=== PATIENT | male | born 1945 | race Caucasian/White ===

== ENCOUNTER 2022-04-12 08:48 | Observation (INO) ==
--- NOTE | 2022-02-24 08:55 | PAT Medication Instructions ---
Medication Instructions Date of Service February 24, 2022 Home Medications cyanocobalamin (vitamin B-12) 50 mcg tablet (Vitamin B-12) 50 mcg PO QAM garlic 100 mg tablet 100 mg PO QAM multivitamin 1 tab PO QAM STOP taking 2 weeks before surgery (or as soon as possible if surgery is within 2 weeks) garlic 100 mg tablet 100 mg PO QAM DO NOT take the morning of surgery cyanocobalamin (vitamin B-12) 50 mcg tablet (Vitamin B-12) 50 mcg PO QAM multivitamin 1 tab PO QAM Other Notes If you have any questions please call us at [phone] or [phone] or [phone] or [phone]
--- NOTE | 2022-02-28 15:05 | Anesthesiology Consultation ---
Date of Service February 28, 2022 Assessment & Plan (1) Encounter for pre-operative examination: - COVID screening: Per assessment on 02/28: No known COVID-19 positive contacts or current COVID-19 related symptoms. Travel screen negative. Patient vaccinated. At surgeon discretion if preop Covid testing being done. - Outpatient joint assessment: Pt currently scheduled for inpatient pathway. If surgeon requests review for outpatient joint pathway, patient is acceptable candidate for outpatient joint program from anesthesia standpoint. - Patient acceptable risk for surgery pending surgeon-ordered PCP preop evaluation (Dr. Mirna Berman, scheduled 03/13). Chart Review Chart Review: Patient seen in Pre Admission Testing Teaching & Discussion Pre-Anesthesia Teaching/Discussion Notes: Instructed NPO after midnight before surgery,except medications with 15 cc of water. Medication instructions provided according to the PAT guidelines. History Surgery Operation Date: 04/12/22 10:30 Proposed Procedures p Left Knee Total Knee Arthroplasty - Jelani Nicole, Height/Weight Height: 5 ft 5 in Weight: 68.7 kg Allergies Allergy/AdvReac Type Severity Reaction Status Date / Time No Known Allergies Allergy Verified 02/23/22 14:11 Medications Home Medications Medication Instructions Recorded Confirmed Last Taken cyanocobalamin (vitamin B-12) 50 50 mcg PO QAM 02/23/22 02/23/22 Unknown mcg tablet (Vitamin B-12) garlic 100 mg tablet 100 mg PO QAM 02/23/22 02/23/22 Unknown multivitamin 1 tab PO QAM 02/23/22 02/23/22 Unknown Past Medical History Medical History GERD (gastroesophageal reflux disease) occasional Exercise / Class Metabolic Activity II 4-5 Yardwork/Stairs/Walk up hill (one FS (no CP, no SOB)) Past Family History Family History Other No family history of adverse response to anesthesia Past Surgical History Surgical History History of cholecystectomy Hx of cardiac catheterization 10 yrs ago > for chest pain, no stents/blockages found per pt Past Anesthesia History No Hx of Anesthesia Complications and No Family Hx of Anesthesia Complications History of PONV No Hx of PONV and No Hx of Motion Sickness Social History Smoking Status: Never smoker Do You Dip or Chew Tobacco: No Hx Alcohol Use: Yes (3 BEERS PER DAY) Alcohol type: beer alcohol intake frequency: 3 or more drinks per day (3 beers/day) Hx Substance Use: No substance use type: does not use Review of Systems Patient denies chest pain, shortness of breath, dyspnea on exertion, fever, chills, cough, wheezing, palpitations. Physical Exam Vital Signs VITALS BP 138/82 P 78 TEMP 98.8 SP02 95%RA RESP 18 PHYSICAL Full cervical extension range of motion. Full TMJ range of motion. TMD 3 finger breaths Mallampati Score 2 Dentition: full dentures upper/lower Lungs: clear throughout to auscultation Cardiac: regular rate and rhythm, no murmurs noted Spine: normal Carotid arteries: negative bruit Extremities: no edema Lab Results Anesthesia Preop Results Results Anesthesia Widget: WBC 4.97 K/ul (4.8-10.8) 02/28/22 Hgb 14.0 g/dl (14.0-18.0) 02/28/22 Hct 41.5 % (40.1-51.0) 02/28/22 Plt 205 K/uL (130-400) 02/28/22 Na 141 mmol/L (136-145) 02/28/22 K 4.1 mmol/L (3.5-5.1) 02/28/22 Cl 105 mmol/L (98-107) 02/28/22 CO2 27 mmol/L (21-32) 02/28/22 BUN 18 mg/dl (6-23) 02/28/22 Creat 0.99 mg/dl (0.6-1.4) 02/28/22 Glucose Level 81 mg/dl (70-99(Fasting)) 02/28/22 PT 10.8 Seconds (9.0-12.0) 02/28/22 PTT 28.8 Seconds (21.0-31.0) 02/28/22 INR 1.0 (0.9-1.1) 02/28/22 HA1c 5.5 % (4.5-5.6) 02/28/22 Urine Color Dark Yellow 02/28/22 Urine Appearance Clear (Clear) 02/28/22 Urine pH 5.5 (4.5-7.5) 02/28/22 Urine Specific [place] 1.025 (1.000-1.030) 02/28/22 Urine Protein Trace (Negative) H 02/28/22 Urine Glucose (UA) Negative (Negative) 02/28/22 Urine Ketones 2+ (Negative) H 02/28/22 Urine Blood Negative (Negative) 02/28/22 Urine Nitrite Negative (Negative) 02/28/22 Urine Bilirubin 1+ (Negative) H 02/28/22 Urine Urobilinogen Negative (Negative) 02/28/22 Urine Leukocyte Esterase Negative (Negative) 02/28/22 Urine WBC (Auto) 1-5 /hpf (0-5) 02/28/22 Urine RBC (Auto) 0-4 /hpf (0-4) 02/28/22 Urine Hyaline Casts (Auto) 1-5 /lpf (0-5) 02/28/22 Urine Epithelial Cells (Auto) 10-20 /lpf (0-5) H 02/28/22 Urine Bacteria (Auto) Negative (Negative) 02/28/22 Blood Type O Negative 02/28/22 Antibody Screen NEGATIVE 02/28/22 Testing Electrocardiogram Date: 02/28/22 NSR at 77bpm. Low voltage QRS. RBBB. Cannot r/o inferior infarct, age undetermined. Chest X-Ray Date: 02/28/22 FINDINGS: Cardiomediastinal and hilar silhouettes are within normal limits. No pneumothorax, pleural effusion, airspace consolidation or overt pulmonary edema. Degenerative changes of the shoulders and spine. IMPRESSION: No acute process. COVID-19 Risk Screen Screening Information COVID-19 Screen Date: 02/28/22 Exposure 21 Days Family/Household +COVID Last 21 Days: No Exposure 10 Days Any COVID Exposure Last 10 Days: No Symptoms Last 10 Days Experienced COVID Sx Last 10 Days: No + COVID 0-90 Days COVID + in Last 0-90 Days: No
--- NOTE | 2022-03-17 15:00 | History & Physical Report ---
Date of Service March 17, 2022 date of surgery: 04/12/22 Procedure: Left Knee Total Knee Arthroplasty Surgeon: Jelani Nicole Assessment & Plan (1) Arthritis of knee, left: Plan: Presents for evaluation of chronic left knee pain for over 50 years. X-rays taken today show advanced generative changes to his left knee. He states he has tried and failed previous cortisone injection as well as viscosupplementation without any relief. He tries acetaminophen as well as Aleve with mild relief. Discussed treatment options with patient today he would like to proceed with left total knee replacement. We will schedule for patient matched left total knee replacement [facility] with overnight hospital stay. We will plan on discharge with home health physical therapy, aspirin 81 mg twice a day for 1 month postop we will schedule for Iovera injection 2 weeks prior to surgery patient otherwise has no other questions or concerns the risks and benefits have been discussed including, but not limited to, risk of infection, nerve injury, stiffness, loss of motion, failure to improve, etc. Reasonable outcomes and options of treatment were discussed. An explanation of appropriate alternatives to the procedure that may be advantageous were discussed and their risks and benefits, as well as the risks and benefits of not proceeding with treatment. I offered to answer any additional inquiries concerning the treatment involved. All the patient's questions were answered. The patient is agreeable, understanding of the treatment plan and alternatives, and wishes to proceed with the treatment plan. History of Present Illness Chief Complaint: left knee pain Primary Care Provider: NO PCP Presents for preop evaluation prior to his left total knee replacement. He states he been having pain in this knee for many years now which is gradually worsened, he states for about 50 years. He has tried and failed previous cortisone injection as well as viscosupplementation without relief. He is tried oral anti-inflammatories and Tylenol as well. His pain is now affecting his daily activities including walking standing going up and on. At this point time would like to proceed with left total knee replacement Allergies Allergy/AdvReac Type Severity Reaction Status Date / Time No Known Allergies Allergy Verified 02/23/22 14:11 Home Medications Medication Instructions Recorded Confirmed Type cyanocobalamin (vitamin B-12) 50 50 mcg PO QAM 02/23/22 02/23/22 History mcg tablet (Vitamin B-12) garlic 100 mg tablet 100 mg PO QAM 02/23/22 02/23/22 History multivitamin 1 tab PO QAM 02/23/22 02/23/22 History Past Med/Surg History Medical History GERD (gastroesophageal reflux disease) occasional Surgical History History of cholecystectomy Hx of cardiac catheterization 10 yrs ago > for chest pain, no stents/blockages found per pt Family History Other No family history of adverse response to anesthesia Social History Smoking Status: Never smoker Second Hand Exposure: No; Hx Alcohol Use: Yes (3 BEERS PER DAY) Alcohol type: beer Hx Substance Use: No Preferred Language: Setswana Communication Ability: Effective Rake Operator Required: No Beliefs That Will Affect Care: None Current Living Situation: Spouse Feels Safe at Home: Yes Assistive Devices: None, Denture - Upper, Denture - Lower and Glasses Review of Systems Review of Systems: All systems reviewed & are unremarkable except as noted in HPI & below Constitutional: no fever, no chills and no sweats Respiratory: no cough and no dyspnea Cardiovascular: no chest pain, no dyspnea and no orthopnea Gastrointestinal: no abdominal pain, no nausea and no vomiting Musculoskeletal: as per Subjective / HPI Physical Exam Physical Exam: HT: 5ft 5in WT: 68.7kg Constitutional: WD/WN, vitals as above no acute distress Respiratory: normal respiratory effort, lungs clear to auscultation no respiratory distress, no labored breathing and does not use accessory muscles Cardiovascular: RRR, no murmur, no edema Gastrointestinal (Abdomen): normal bowel sounds, soft, nontender, no hepatosplenomegaly Musculoskeletal: Knee: + knee abnormal to inspection (LEFT KNEE), + effusion (+1 effusion), + limited ROM of knee (ROM 0/3/110), + knee ROM with crepitation, + joint line tenderness (medial joint line) and + Ananda's sign positive; no deformity, no skin erythema, no ecchymosis, no valgus laxity, no varus laxity, anterior drawer test negative, Jacky's sign negative and pivot shift test negative Results & Data Results & Data ([facility]) Diagnostic Findings Left Knee X-ray: left knee series confirm advanced degenerative changes to the left knee, greatest medial compartments and patellofemoral joint, showing joint space narrowing, osteophyte formation and subchondral sclerosis. no acute bony pathology noted.
[~2022-04-12 08:48] MED LIST: ACETAMINOPHEN 500 MG TAB PO SCH; BUPIVACAINE 0.5 % 5 MG/1 ML PF 10ML VIAL ONE; CeleBREX 200 MG CAP PO SCH; FAMOTIDINE 20 MG TAB PO SCH; GABAPENTIN 300 MG CAP PO SCH; LR 500ML BOLUS, THEN 15ML/HR IV SCH; METOCLOPRAMIDE HCL 10 MG TABLET PO SCH; ROPIVACAINE 0.5% 5 MG/ML 30 ML VIAL ONE; ROPIVACAINE 0.5% HCL/PF 150 MG, BUPIVACAINE 0.75% MPF 20 ML, EPINEPHrine 30MG/30ML (OR ... INSTIL SCH; TRANEXAMIC ACID 1,000 MG **IV Intra-op IV SCH; TRANEXAMIC ACID 1,000 MG **IV Pre-op IV SCH; ceFAZolin 2000MG 2,000 MG/15 ML SYR IV SCH; dexAMETHasone 4 MG TAB PO SCH
--- NOTE | 2022-04-12 09:48 | History & Physical Bridge Note ---
Date of Service April 12, 2022 History & Physical Bridge Note I have examined the patient, reviewed the History & Physical and in the interval since the performance of the History & Physical I have noted the following changes of clinical significance: no changes noted
[2022-04-12] MEDS ORDERED: MIDAZOLAM HCL 1 MG/ML 2ML VIAL ONE (10:53)
[2022-04-12] MEDS ORDERED: DEXAMETHASONE SOD INJ 4 MG/ML VIAL ONE ×2 (10:53→12:54)
[2022-04-12] MEDS ORDERED: PROPOFOL IV EMULSION 10 MG/ML 20 ML VIAL IV ONE ×2 (10:53→13:34)
[2022-04-12] MEDS ORDERED: ONDANSETRON INJ 2 MG/ML 2 ML VIAL ONE (10:53)
[2022-04-12] MEDS ORDERED: HYDROmorphone INJ 2 MG/ML SYR/VIAL IV PRN (11:48)
[2022-04-12] MEDS ORDERED: fentaNYL citrate 100 MCG/2 ML VIAL IV PRN (11:48)
[2022-04-12] MEDS ORDERED: PROMETHAZINE HCL 12.5 MG in SODIUM CHLORIDE 0.9% 50 ML IV PRN (11:48)
[2022-04-12] MEDS ORDERED: ONDANSETRON INJ 2 MG/ML 2 ML VIAL IV PRN ×2 (11:48→16:15)
[2022-04-12] MEDS ORDERED: ePHEDrine sulfate 50 MG/ML AMP IV PRN (11:48)
[2022-04-12] MEDS ORDERED: ATROPINE SULFATE 0.1 MG/ML 10ML SYR IV PRN (11:48)
[2022-04-12] MEDS ORDERED: ePHEDrine sulfate 50 MG/ML SYR ONE (12:22)
[2022-04-12] MEDS ORDERED: ORTHO JOINT ANESTHETIC ONE (12:23)
[2022-04-12] MEDS ORDERED: fentaNYL citrate 100 MCG/2 ML VIAL ONE (12:54)
[2022-04-12] MEDS ORDERED: ESMOLOL HCL INJ 10 MG/ML 10ML VIAL IV ONE (13:31)
--- NOTE | 2022-04-12 13:37 | Operative Report ---
Post Operative Report Pre & Post Diagnosis Operation Date: 04/12/22 11:40 Pre-Op Diagnosis: Arthritis of Left Knee Post-Op Diagnosis: Arthritis of Left Knee I identified the patient and participated in the time-out.: Yes Procedure Operation Date: 04/12/22 11:40 Actual Procedures p Left Knee Total Knee Arthroplasty(Left) utilizing [facility] 2 patient matched total knee arthroplasty size femur 4 tibia for polytwelve patella 32 papo- Jelani Nicole DO Surgeon Jelani Nicole DO Merchandiser Retail Representative CHRISTIANA Estrada Estimated Blood Loss 5 Findings Consistent with Post-Op Diagnosis Patient resting severe end-stage tricompartmental DJD left knee no response to conservative management the above intraoperative findings noted patient had about eburnated [id number] subchondral sclerosis marginal osteophytes moderate to large effusion Specimens Bone Drains Medium bore Anesthesia Type MAC Spinal Regional Complications none Disposition Accompanied Patient To Recovery: No Disposition: Recovery Room Indications Patient presents with severe end-stage DJD left knee for left total knee arthroplasty patient fell attempted corticosteroid injection viscosupplementation relative rest activity modification presents with the above intraoperative findings noted Description of Procedure After proper prepping and draping of the left lower extremity anterior midline incision was made over the region of the extensor extensor mechanism after meticulous hemostasis was obtained and maintained in subcutaneous tissues a medial parapatellar incision was made The patella was subluxed lateralward the medial lateral gutter were cleaned from any hypertrophic synovitis and scar tissue of the distal femoral block was placed and the distal femoral osteotomy cut was made subsequently the chamfers anterior and posterior osteotomy cuts were made utilizing the 4-in-1 block the tibia was subsequently subluxed anteriorward medial and ateral meniscal remnants were excised in their entirety remnants of the anterior and posterior cruciate ligaments were excised in their entirety excellent exposure of the proximal tibia was obtained the tibial osteotomy guide was placed on the proximal tibial osteotomy cut was made once again the knee was irrigated with copious amounts of sterile saline solution the patella was subsequently everted lateralward thickened scar tissue around the patella was removed the patella was subsequently cut utilizing a freehand technique and was drilled prepared for final preparation and placement of patella socially flexion-extension gaps were checked and the equal and symmetric trials were placed to the appropriate femoral and tibial trials with poly-spacer being placed for equal flexion and extension gaps and full range of motion including extension to 0 and flexion to 140 the trial components after having been taken to recovery range of motion was subsequently removed meticulous hemostasis was obtained and maintained subsequently a knee block injection of joint cocktail including ropivacaine 0.5% 150 mg. Bupivacaine 0.5% epinephrine 1-200,030 mL's toradol 30 mg dexamethasone 4 mg ketamine 10 mg clonidine 100 micrograms normal saline solution 30 mg was infiltrated into the soft tissues of the posterior knee medial lateral gutters and periosteal synovium special attention was paid to protect neurovascular structures at all times subsequently trial components having been removed the knee was irrigated with sterile saline solution. debris was removed the proximal tibia was subsequently prepared and was made ready for the placement of the tibial component tibial component was also cemented and tamped into position the femoral component was subsequently placed and cemented in the position the patellar component was subsequently cemented in position because hemostasis once again obtained and maintained wound having been thoroughly irrigated with debridement and debridement lavage was performed as well as a medial parapatellar incision closed with #1 Vicryl in interrupted fashion subcutaneous was closed with #2 Vicryl skin was closed with skin clips. PA-C was necessary for prepping and drapping as well as wound closure of deep fascia Sub cutaneous tissue and skin and was necessary for the case. A sterile compressive dressing was placed patient was taken to recovery in stable condition of report dictated by Corey I attest to the content of the Intraoperative Record and any orders documented therein. Any exceptions are noted below.Due to the complex nature of the procedure, the entire surgery was performed with the operational assistance of CHRISTIANA Estrada. The assistant county engineer, under direct supervision, was involved in the actual performance of all aspects of the surgical procedure including hemostasis, tissue retraction and incision, instrument management, patient positioning, and wound closure. I attest to the content of the Intraoperative Record and any orders documented therein. Any exceptions are noted below.
--- NOTE | 2022-04-12 14:53 | Anesthesiology Progress Note ---
Date of Service April 12, 2022 Anesthesia Post Procedure Vital Signs Vital Signs: Temp Pulse Pulse Resp BP BP Pulse Ox 04/12/22 14:50 98 H 19 99/54 L 95 04/12/22 14:40 90 18 105/52 L 97 04/12/22 14:25 97 H 20 113/51 L 99 04/12/22 14:15 36.1 C L 98 H 14 101/53 L 97 04/12/22 09:27 36.8 C 71 20 162/82 H 98 O2 Del Method O2 Flow Rate 04/12/22 14:50 Room Air 04/12/22 14:40 Oxymask 4 04/12/22 14:25 Oxymask 6 04/12/22 14:15 Oxymask 6 04/12/22 09:27 Room Air Pain Intensity Left Knee: Pain Intensity: 5 Transfer of Care Handoff Completed per policy Notes Mental Status: alert / awake / arousable and participated in evaluation Nausea / Vomiting: adequately controlled Pain: adequately controlled Airway Patency, RR, SpO2: stable & adequate BP & HR: stable & adequate Hydration State: stable & adequate Neuraxial Anesthesia: was administered and sensory block is resolving Anesthetic Complications: no major complications apparent and Pt Satisfied with anesthetic care
--- NOTE | 2022-04-12 15:41 | XRay Report ---
LEFT KNEE 2 VIEWS History: Left total knee arthroplasty. Degenerative arthritis. Postop. FINDINGS: The patient is status post a left total knee arthroplasty. The hardware is intact. No fract ure or dislocation. Surgical drains are in place. IMPRESSION: Left total knee arthroplasty. No evidence for hardware complication. ACT 112: Negative or not required by law. Electronically signed by: Skip Amos M.D. 04/12/2022 3:40 PM
[2022-04-12] MEDS ORDERED: NALOXONE HCL 0.4 MG/1 ML VIAL/CARP IV PRN (16:15)
[2022-04-12] MEDS ORDERED: oxyCODONE HCL IR 5 MG TAB (IMMEDIATE RELEASE) PO PRN (16:15)
[2022-04-12] MEDS ORDERED: MAGNESIUM HYDROXIDE SUSP 30 ML UDC PO PRN (16:15)
[2022-04-12] MEDS ORDERED: bisacodyL 10 MG SUPP PR PRN (16:15)
[2022-04-12] MEDS ORDERED: METOCLOPRAMIDE HCL INJ 5 MG/ML 2 ML VIAL IV PRN (16:15)
[2022-04-12] MEDS ORDERED: HYDROmorphone INJ 1 MG/ML SYRINGE IV PRN (16:15)
[2022-04-12] MEDS ORDERED: diphenhydrAMINE Capsule 25 MG CAP PO PRN (16:15)
--- NOTE | 2022-04-12 16:50 | Hospitalist Consultation ---
Date of Consultation April 12, 2022 Assessment & Plan (1) Arthritis of knee, left: Huber is a 77-year-old male with past medical history of right bundle branch block who presented for scheduled left knee total arthroplasty. He is doing well postoperatively with no acute concerns. Normal sensation, neurovascularly intact in both lower extremities. S/p left TKA Neurovascularly intact, drain in place DVT prophylaxis, ambulation, pain control per primary team Do well postoperatively with no acute concerns Right bundle branch block Noted on cardiology preoperative evaluation. Subsequent echo without concerning findings. No angina or anginal equivalents Follow clinically, no acute intervention required at this time if patient continuing to do well Is not on any chronic medications No signs of ACS, CHF Denies pulmonary disease, breathing is unlabored and comfortable on room air No history of renal disease No history of diabetes Is doing well, hemodynamically stable, neurovascularly intact postoperatively. Medicine will sign off, please let us know if any clinical concerns or other abnormalities develop (2) RBBB: History of Present Illness Attending Physician: Jelani Nicole, History of Present Illness Huber is a 77-year-old male who presented for scheduled left knee total arthroplasty, we have been scheduled for postoperative medical management. Patient had a history of preoperative right bundle branch block without chest pain/chest pressure/syncope/angina, underwent a preoperative echocardiogram which showed normal LV thickness, EF 60-64%, grade 1 diastolic dysfunction.No concerning symptoms, was recommended to proceed with surgery. Patient is seen at the bedside, reports he feels well, has sensation that is returned to his feet bilaterally and is eager to begin moving around and be more active. Denies chest pain, chest pressure, lightheadedness, dizziness, nausea, vomiting, pain at time of bedside assessment. Patient reports he takes no regular medications at home, has no pulmonary or renal disease, no history of heart attacks. Former tobacco use, none recently. Drinks beers 13, no history of withdrawal/tremors, has had alcohol free days in the past month with no tremor/shakes. Medical History: Reviewed Medications: Reviewed Surgical History: Reviewed Allergies: Reviewed Social History: Reviewed, former tobacco use in remission Code Status: Full Allergies Allergy/AdvReac Type Severity Reaction Status Date / Time No Known Allergies Allergy Verified 04/12/22 09:25 Home Medications Medication Instructions Recorded Confirmed Type cyanocobalamin (vitamin B-12) 50 50 mcg PO QAM 02/23/22 04/12/22 History mcg tablet (Vitamin B-12) garlic 100 mg tablet 100 mg PO QAM 02/23/22 04/12/22 History multivitamin 1 tab PO QAM 02/23/22 04/12/22 History Patient History Medical History GERD (gastroesophageal reflux disease) occasional Surgical History History of cholecystectomy Hx of cardiac catheterization 10 yrs ago > for chest pain, no stents/blockages found per pt Family History Other No family history of adverse response to anesthesia Social History Smoking Status: Never smoker Second Hand Exposure: No; Do You Dip or Chew Tobacco: No; Tobacco Cessation Education Requested by Patient: No Hx Alcohol Use: Yes (3 BEERS PER DAY) Alcohol type: beer Hx Substance Use: No Preferred Language: Moldovan Communication Ability: Effective Tie Sawyer Required: No Beliefs That Will Affect Care: None Current Living Situation: Spouse Other Information That Helps Us Care for You: No Feels Safe at Home: Yes Safety Concerns: Feels Safe At This Time Assistive Devices: None, Denture - Upper, Denture - Lower and Glasses Review of Systems Review of Systems: All systems reviewed & are unremarkable except as noted in HPI & below Physical Exam Physical Exam: General: A&Ox3. NAD. Cooperative. HEENT: Atraumatic, normocephalic. Vision/hearing intact Pulm: CTAB A&P. -wheezes, -rales, -rhonchi. Symmetrical chest rise. No increase in work of breathing. No respiratory distress. Cardiac: RRR, -mrg. Radial pulses intact and symmetrical. Abdominal: Nontender, nondistended, soft. BS present. Extremity: Left leg with postoperative knee dressing in place. Sensation to soft touch intact in feet bilaterally without asymmetry. Ankle dorsiflexion/plantarflexion intact bilaterally, wiggles toes bilaterally. PT pulse intact bilaterally. Left knee with drain in place, draining sanguinous material Results & Data Results & Data ([facility]) Vital Signs (Past 12 Hours) Vital Signs Temp Pulse Pulse Resp BP BP Pulse Ox 04/12/22 16:15 36.6 C 91 H 16 113/61 94 04/12/22 15:45 90 16 110/56 L 93 04/12/22 15:30 94 H 20 120/58 L 93 04/12/22 15:15 93 H 16 112/51 L 92 04/12/22 15:00 36.4 C L 94 H 20 115/65 94 04/12/22 14:50 98 H 19 99/54 L 95 04/12/22 14:40 90 18 105/52 L 97 04/12/22 14:25 97 H 20 113/51 L 99 04/12/22 14:15 36.1 C L 98 H 14 101/53 L 97 04/12/22 09:27 36.8 C 71 20 162/82 H 98 O2 Del Method O2 Flow Rate 04/12/22 16:15 Room Air 04/12/22 15:45 Room Air 04/12/22 15:30 Room Air 04/12/22 15:15 Room Air 04/12/22 15:00 Room Air 04/12/22 14:50 Room Air 04/12/22 14:40 Oxymask 4 04/12/22 14:25 Oxymask 6 04/12/22 14:15 Oxymask 6 04/12/22 09:27 Room Air PG Care Time/CCT Total # of Minutes Spent Total Time Spent with Patient: Total time spent is greater than 50% in coordination of care (as documented) at patient's floor/unit and/or counseling patient: Coding Level of Care Code 91963 Inpt Consult Level 2 Diagnoses Arthritis of knee, left M17.12 RBBB I45.10
[2022-04-12] MEDS: SODIUM CHLORIDE 0.9% 1000ML 1,000 ML IV SCH (17:41)
[2022-04-12] MEDS: KETOROLAC TROMETHAMINE 15 MG/ML VIAL IV SCH ×2 (17:41→23:06)
[2022-04-12] MEDS: ceFAZolin 2000MG 2,000 MG/15 ML SYR IV SCH (20:00)
[2022-04-12] MEDS: DOCUSATE SODIUM 100 MG CAP PO SCH (20:00)
[2022-04-12] MEDS: ASPIRIN 81 MG ECTAB PO SCH (20:00)
[2022-04-12] MEDS ORDERED: CeleBREX 200 MG CAP PO SCH (21:00)
[2022-04-12] MEDS ORDERED: SENNA 8.6 MG TAB PO SCH (21:00)
[2022-04-12] MEDS: ACETAMINOPHEN 500 MG TAB PO SCH (21:26)
[2022-04-13] MEDS: ceFAZolin 2000MG 2,000 MG/15 ML SYR IV SCH (04:19)
[2022-04-13] MEDS: SODIUM CHLORIDE 0.9% 1000ML 1,000 ML IV SCH (04:43)
[2022-04-13] MEDS: KETOROLAC TROMETHAMINE 15 MG/ML VIAL IV SCH ×2 (05:40→11:16)
[2022-04-13] MEDS: ACETAMINOPHEN 500 MG TAB PO SCH (05:40)
--- NOTE | 2022-04-13 07:14 | Orthopedic Progress Note ---
Date of Service April 13, 2022 Assessment & Plan (1) History of total left knee replacement: Plan: POD #1 s/p left TKA pt/ot dvt proph with PORTILLO/SCD/ASA plan for d/c home with HHPT Admission and Anticipated Discharge Date Admission Date: April 12, 2022 Subjective POD #1 s/p Left TKA Review of Systems Constitutional: no fever, no chills and no sweats Respiratory: no cough and no dyspnea Cardiovascular: no chest pain and no dyspnea Gastrointestinal: no abdominal pain, no nausea and no vomiting Physical Exam Physical Exam: Vital Signs Temp Pulse Pulse Resp BP BP Pulse Ox 04/13/22 05:44 36.5 C 80 18 135/78 94 04/13/22 02:35 36.4 C L 88 18 110/63 94 04/12/22 19:45 04/12/22 21:59 94 04/12/22 21:48 36.8 C 101 H 18 96/53 L 90 04/12/22 19:23 36.7 C 103 H 18 110/55 L 95 04/12/22 16:20 04/12/22 17:23 36.4 C L 92 H 17 131/73 95 04/12/22 16:15 36.6 C 91 H 16 113/61 94 04/12/22 15:45 90 16 110/56 L 93 04/12/22 15:30 94 H 20 120/58 L 93 04/12/22 15:15 93 H 16 112/51 L 92 04/12/22 15:00 36.4 C L 94 H 20 115/65 94 04/12/22 14:50 98 H 19 99/54 L 95 04/12/22 14:40 90 18 105/52 L 97 04/12/22 14:25 97 H 20 113/51 L 99 04/12/22 14:15 36.1 C L 98 H 14 101/53 L 97 04/12/22 09:27 36.8 C 71 20 162/82 H 98 O2 Del Method O2 Flow Rate 04/13/22 05:44 Room Air 04/13/22 02:35 Room Air 04/12/22 19:45 Room Air 04/12/22 21:59 04/12/22 21:48 Room Air 04/12/22 19:23 Room Air 04/12/22 16:20 Room Air 04/12/22 17:23 Room Air 04/12/22 16:15 Room Air 04/12/22 15:45 Room Air 04/12/22 15:30 Room Air 04/12/22 15:15 Room Air 04/12/22 15:00 Room Air 04/12/22 14:50 Room Air 04/12/22 14:40 Oxymask 4 04/12/22 14:25 Oxymask 6 04/12/22 14:15 Oxymask 6 04/12/22 09:27 Room Air Intake and Output 04/12/22 04/13/22 04/13/22 22:59 06:59 14:59 Intake Total 350 / 3110 1260 / 3110 Output Total 400 / 1355 950 / 1355 Balance -50 / 1755 310 / 1755 Intake: IV 200 / 1200 1000 / 1200 Sodium Chlorid e 0.9% 1000ML 1, 1000 / 1000 000 ml @ 100 m ls/hr IV .Q10H [facility] Rx#:[id number] Tranexamic Aci d / 0.7% NaCl 1, 200 / 200 000 mg In 100 ml @ 600 mls/hr IV TODAY@0600 [facility] Rx#:[id number] Oral 150 / 410 260 / 410 Output: Urine 350 / 1275 925 / 1275 Drain Output 50 / 75 25 / 75 Left Knee Hemo vac 50 / 75 25 / 75 Musculoskeletal: Left Leg: NVDI, calf SNT, negative leeroy sign. DP palpable, able to wiggle toes/ankle movement without difficulty. dressing clean dry and intact. Results & Data ([facility]) Vital Signs (Past 12 Hours) Vital Signs Temp Pulse Pulse Resp BP Pulse Ox O2 Del Method 04/13/22 05:44 36.5 C 80 18 135/78 94 Room Air 04/13/22 02:35 36.4 C L 88 18 110/63 94 Room Air 04/12/22 19:45 Room Air 04/12/22 21:59 94 04/12/22 21:48 36.8 C 101 H 18 96/53 L 90 Room Air 04/12/22 19:23 36.7 C 103 H 18 110/55 L 95 Room Air Laboratory Results Laboratory Results SARS-CoV-2, RNA, NAAT NEGATIVE (NEGATIVE) 04/12/22 Unknown Impressions Knee X-Ray 04/12/22 14:17 LEFT KNEE 2 VIEWS History: Left total knee arthroplasty. Degenerative arthritis. Postop. FINDINGS: The patient is status post a left total knee arthroplasty. The hardware is intact. No fracture or dislocation. Surgical drains are in place. IMPRESSION: Left total knee arthroplasty. No evidence for hardware complication. ACT 112: Negative or not required by law. Electronically signed by: Skip Amos M.D. 04/12/2022 3:40 PM
--- NOTE | 2022-04-13 07:19 | Discharge Summary ---
Date of Service date of discharge: April 13, 2022 date of admission: 04-12-22 Admission HPI Per Admitting Provider Presents for preop evaluation prior to his left total knee replacement. He states he been having pain in this knee for many years now which is gradually worsened, he states for about 50 years. He has tried and failed previous cortisone injection as well as viscosupplementation without relief. He is tried oral anti-inflammatories and Tylenol as well. His pain is now affecting his daily activities including walking standing going up and on. At this point time would like to proceed with left total knee replacement Principal Diagnosis left knee arthritis Discharge Exam Vital Signs Temp Pulse Pulse Resp BP BP Pulse Ox 04/13/22 05:44 36.5 C 80 18 135/78 94 04/13/22 02:35 36.4 C L 88 18 110/63 94 04/12/22 19:45 04/12/22 21:59 94 04/12/22 21:48 36.8 C 101 H 18 96/53 L 90 04/12/22 19:23 36.7 C 103 H 18 110/55 L 95 04/12/22 16:20 04/12/22 17:23 36.4 C L 92 H 17 131/73 95 04/12/22 16:15 36.6 C 91 H 16 113/61 94 04/12/22 15:45 90 16 110/56 L 93 04/12/22 15:30 94 H 20 120/58 L 93 04/12/22 15:15 93 H 16 112/51 L 92 04/12/22 15:00 36.4 C L 94 H 20 115/65 94 04/12/22 14:50 98 H 19 99/54 L 95 04/12/22 14:40 90 18 105/52 L 97 04/12/22 14:25 97 H 20 113/51 L 99 04/12/22 14:15 36.1 C L 98 H 14 101/53 L 97 04/12/22 09:27 36.8 C 71 20 162/82 H 98 O2 Del Method O2 Flow Rate 04/13/22 05:44 Room Air 04/13/22 02:35 Room Air 04/12/22 19:45 Room Air 04/12/22 21:59 04/12/22 21:48 Room Air 04/12/22 19:23 Room Air 04/12/22 16:20 Room Air 04/12/22 17:23 Room Air 04/12/22 16:15 Room Air 04/12/22 15:45 Room Air 04/12/22 15:30 Room Air 04/12/22 15:15 Room Air 04/12/22 15:00 Room Air 04/12/22 14:50 Room Air 04/12/22 14:40 Oxymask 4 04/12/22 14:25 Oxymask 6 04/12/22 14:15 Oxymask 6 04/12/22 09:27 Room Air Intake and Output 04/12/22 04/13/22 04/13/22 22:59 06:59 14:59 Intake Total 350 / 3110 1260 / 3110 Output Total 400 / 1355 950 / 1355 Balance -50 / 1755 310 / 1755 Intake: IV 200 / 1200 1000 / 1200 Sodium Chloride 0.9% 1000ML 1, 1000 / 1000 000 ml @ 100 mls/hr IV .Q10H [facility] Rx#:[id number] Tranexamic Acid / 0.7% NaCl 1, 200 / 200 000 mg In 100 ml @ 600 mls/hr IV TODAY@0600 [facility] Rx#:[id number] Oral 150 / 410 260 / 410 Output: Urine 350 / 1275 925 / 1275 Drain Output 50 / 75 25 / 75 Left Knee Hemovac 50 / 75 25 / 75 Musculoskeletal left knee: NVDI, calf SNT, negative leeroy sign. DP palpable, able to wiggle toes/ankle movement without difficulty. Discharge Data Allergies Allergy/AdvReac Type Severity Reaction Status Date / Time No Known Allergies Allergy Verified 04/12/22 09:25 Consultations 04/07/22 15:01 Consult Hospitalist Routine Procedures Performed Operation Date: 04/12/22 11:40 Actual Procedures p Left Knee Total Knee Arthroplasty(Left) - Jelani Rice DO Ordered Studies 04/12/22 05:00 US - OR guided needle placemen Routine Hospital Course (1) History of total left knee replacement: POD #1 s/p left TKA pt/ot dvt proph with PORTILLO/SCD/ASA plan for d/c home with HHPT Total Time Total Time Spent Total Time Spent (In Minutes): 20 Discharge Plan Discharge Items Patient Disposition: Home - Home Health Services Reason For Visit: Arthritis of Left Knee Discharge Diagnosis: LEFT TOTAL KNEE REPLACEMENT Activity: Per Instructions section Weightbearing Comment: WBAT WITH WALKER Non-emergency contact: Surgeon Call non-emergency contact if: you have any medication questions, your temperature is above 101, your wound has increased redness, your wound has increased drainage and your wound pain has increased Follow-up/Referrals: Mirna Berman DO [Primary Care Provider] - Diet: Regular Addtl Attending Provider Instructions: ACTIVITY RECOMMENDATIONS: SELF CARE INSTRUCTIONS AFTER TOTAL KNEE REPLACEMENT A. You may need to continue a physical therapy program after discharge from the hospital. There are several options available to you. Your doctor will assist you in selecting the best one for you. 1. An out-patient facility 2 to 3 times a week for therapy or home therapy. 2. Continue working on all exercises taught to you in the hospital. Your goals should be to increase bending of your knee to 90 degrees and beyond and to fully straighten your knee. B. You may progress at your own pace from walking with a walker or crutches to a cane; then to no assistive devices. C. Make walking a part of your daily routine. Be up as much as comfortable with rest periods throughout the day. Rest with leg elevation is very important. Use the ice wrap frequently for the first 3-4 weeks. D. There are no restrictions on activities. You may ride in a car, shop, participate in leather shaver and all social activities. E. Wear the long elastic stockings (PORTILLO hose) 20 hours a day for 2 weeks after surgery. They can be removed several times a day for laundering and for a bath. F. You may shower, no tub baths until cleared by your doctor. SPECIAL CARE INSTRUCTIONS: VERY IMPORTANT TO READ AND REVIEW A. There are a few signs you need to watch for after you are home. Call [facility] if you notice any of the followin. Increased severe knee pain. Some pain is expected especially when you exercise. 2. Increased swelling in your leg or knee; pain or swelling of the calf muscle in either lower leg. 3. Any fluid drainage from the incision. 4. Shortness of breath or chest pain. B. Please call [facility] at if you have any concerns or questions about your operation or recovery. The doctor or his nurse will return your call promptly. C. You must take antibiotics before dental work, bladder, bowel or other surgery. Your doctor will provide you with a permanent care to carry describing this precaution. IMPORTANT: * REMEMBER TO TAKE ASPIRIN, 81 MG, TWICE DAILY FOR 4 WEEKS UNLESS OTHERWISE DIRECTED. THIS IS YOUR BLOOD THINNER. * HIGH RISK PATIENTS MAY BE PRESCRIBED A STRONGER BLOOD THINNER. THIS WILL BE PROVIDED AT DISCHARGE. * CALL IF INCREASED PAIN, REDNESS, DRAINAGE OR FEVER GREATER THAT 101. * WEAR PORTILLO HOSE 20 HOURS PER DAY FOR 2 WEEKS. DRESSING INSTRUCTIONS * EZEKIEL Dressing- This is a large suction dressing covering your incision. This will help pull any excess drainage from the wound and allow your incision to heal properly. You may shower with this if you can keep the unit outside of the shower. If any bleeding or leakage is noted please call your doctor's office. This will remain on your incision for 7 days and then should be removed. This can be done yourself or by the home nursing staff if applicable. The entire unit is disposable once removed. Once removed, keep incision clean and dry. If redness or drainage is noted, please call your surgeon. ONCE EZEKIEL IS REMOVED, FOLLOW THESE INSTRUCTIONS: DERMABOND Prineo- This is a mesh tape dressing that is covered with glue. It should remain in place until the incision is properly healed, usually 10-14 days. This dressing is designed to naturally slough off. You may trim the excess mesh tape as it peels off. Incision may be briefly wet in a shower. Dry immediately by blotting with a clean, dry towel. Do not bath or swim until instructed by your doctor. Do not scratch, rub, or pick at the dressing. Do not apply any topical ointments or lotions until dressing is completely removed and/or instructed by your doctor. There may be a small piece of suture material at one end of your incision. Do not pull or trim this. If it is bothersome or catching on clothing, you may cover it with a band-aid. IF INCISION IS LEAKING THROUGH DRESSING, CALL THE OFFICE . FOLLOW UP VISIT: If appointment is not already scheduled: Please call [facility] to make a follow-up appointment for 2 weeks after your surgery at . Pending Studies at Discharge: No Stand-Alone Forms: My [facility] Medications and DC Order Prescriptions: New acetaminophen [Tylenol Extra Strength] 500 mg Tablet 1,000 mg PO Q8 21 Days Qty: 126 0RF aspirin 81 mg Tablet,Delayed Release (Dr/Ec) 81 mg PO BID 30 Days Qty: 60 0RF celecoxib [Celebrex] 200 mg Capsule 200 mg PO BID 30 Days Qty: 60 0RF oxycodone 5 mg Tablet 5 - 10 mg PO Q6H PRN (Reason: pain) Qty: 30 0RF Rx Instructions: ongoing therapy, supervising dr huan rice. max 6 tabs in 24 hours cefadroxil 500 mg capsule 500 mg PO BID 14 Days Qty: 28 0RF Continued multivitamin Tablet 1 tab PO QAM garlic 100 mg Tablet 100 mg PO QAM Vitamin B-12 50 mcg Tablet 50 mcg PO QAM Discharge Orders: Discharge Order (Routine); Ordered 04/13/22 Ordered By: Scott Drake Admission Data Admit Date/Time: 04/12/22 14:17 Attending Provider: Jelani Rcie Admit Provider: Jelani Rice Primary Care Provider: Mirna Berman Other Providers: Jelani Reynoso
[2022-04-13 08:08] LABS: Hematocrit (blood only) 32.5 % (40.1-51.0); Hemoglobin 11.1 g/dl (14.0-18.0); Mean Corpuscular Hemoglobin 33.3 pg (25.0-34.0); Mean Corpuscular Hgb Conc 34.2 g/dL (32.0-36.0); Mean Corpuscular Volume 97.6 fL (80.0-100.0); Mean Platelet Volume 9.2 fL (9.4-12.4); Platelet Count 188 K/uL (130-400); RDW Coefficient of Variation 14.6 % (11.5-14.5); RDW Standard Deviation 52.9 fL (36.4-46.3); Red Blood Count 3.33 M/uL (4.63-6.08); White Blood Count 11.65 K/ul (4.8-10.8)
[2022-04-13] MEDS: ASPIRIN 81 MG ECTAB PO SCH (08:22)
[2022-04-13] MEDS: DOCUSATE SODIUM 100 MG CAP PO SCH (08:22)
[2022-04-13 08:51] LABS: Calcium 8.2 mg/dl (8.5-10.1); Creatinine Clr Calc Pharmacy 49.6 ml/min; Est GFR (African American) 77.9 ml/min; Est GFR (Non-African American) 67.2 ml/min; Potassium 4.2 mmol/L (3.5-5.1)
[2022-04-13] MEDS ORDERED: MULTIVITAMIN TAB PO SCH (09:00)
[2022-04-13] MEDS ORDERED: CYANOCOBALAMIN (B-12) 100 MCG TABLET PO SCH (09:00)
== END 2022-04-13 15:45 | disposition home health service (06) ==
LOC: ASU 08:48 → 3N 08:48
DX: M17.12 Unilateral primary osteoarthritis, left knee